=== PATIENT | male | born 1985 | race Caucasian/White ===

== ENCOUNTER 2020-03-21 18:16 | Emergency (ER) | payer OTHER ==
[~2020-03-21] VITALS: Ht 180 cm; Wt 85.0 kg
[2020-03-21 18:28] VITALS: BP 105/63
--- NOTE | 2020-03-21 18:37 | ED Lower Extremity ---
General Chief Complaint: Lower Extremity Stated Complaint: ACHILLES PAIN Nursing Triage Note: PT WAS PLAYING SOME WARRIOR GAMES AND TOOK OFF TO RUN AND FELT A BURNING PAIN IN HIS LEFT ACHILLLES. 600 MG OF IBUPROFEN TAKEN WITHIN THE HALF HOUR. 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 He says he was playing volleyball and he took off to run and says he put pressure on his left foot he felt a sharp pain like a fast ball being struck right in his Achilles tendon. He has been having difficulty walking on it because of the pain. He's been elevating it, icing it and took 800 mg of ibuprofen. This happened about 45 minutes prior to arrival. No previous history of orthotic injury to the site. He does follow with a doctor but does not take any medications routinely. He has an allergy to penicillin which she states is hives. No recent history of steroid use or antibiotics. Patient is from [facility]. No cough or sick contacts. No fevers. He plans to return home on Friday, 3 days from now Allergies and Home Medications Allergies Coded Allergies: penicillin G (Verified Allergy, Mild, Hives, 03/21/20) Patient Home Medication List Home Medication List Reviewed: Yes Review of Systems Constitutional: No chills, No diaphoresis EENTM: No ear discharge, No ear pain Respiratory: No cough, No short of breath Cardiovascular: No chest pain, No edema Gastrointestinal: No abdominal pain, No constipation, No diarrhea, No nausea Genitourinary: No discharge, No dysuria Musculoskeletal: see HPI; No back pain; joint pain Skin: No change in color, No change in hair/nails Psychiatric/Neurological: Denies Anxiety, Denies Depressed All Other Systems Reviewed Negative Unless Noted: Yes Past Xtuyrrq-Opzsxj-Nbtvwk Hx Patient Social History Alcohol Use: Regular Use Alcohol Beverage of Choice: Beer, Whiskey Recreational Drug Use: No Smoking Status: Current Someday Smoker 2nd Hand Smoke Exposure: No Recent Foreign Travel: No Contact w/Someone Who Travel: No Recent Infectious Disease Expo: No Recent Hopitalizations: No Physical Abuse: No Sexual Abuse: No Mistreated: No Fear: No Seasonal Allergies Seasonal Allergies: No Past Medical History Surgeries: Yes Orthopedic, Vasectomy Respiratory: No Cardiac: No Neurological: No Genitourinary: No Gastrointestinal: No Musculoskeletal: No Endocrine: No HEENT: No Cancer: No Psychosocial: Yes Sleep Difficulties Integumentary: No Blood Disorders: No Physical Exam Vital Signs Vital Signs - First Documented 03/21/20 18:28 Temp 36.1 Pulse 83 Resp 18 B/P (MAP) 105/63 (77) Pulse Ox 97 O2 Delivery Room Air Capillary Refill : NONE Height, Weight, BMI Height: '" Weight: lbs. oz. kg; 26.00 BMI Method: General Appearance: WD/WN, mild distress HEENT: PERRL/EOMI, pharynx normal Neck: full range of motion, normal inspection Cardiovascular: normal peripheral pulses, regular rate, rhythm Respiratory: no respiratory distress, no accessory muscle use Legs: bilateral leg non-tender, bilateral leg normal inspection, bilateral leg normal range of motion, bilateral leg no evidence of injury Ankles: bilateral ankle non-tender, bilateral ankle normal inspection, bilateral ankle normal range of motion, bilateral ankle no evidence of injury Feet: bilateral foot non-tender, bilateral foot normal inspection, bilateral foot normal range of motion, bilateral foot no evidence of injury Neurologic/Tendon: normal sensation, normal motor functions, responds to pain, tendon function deficit (positive Vásquez's test. On Squeezing the gastrocnemius there is no plantar flexion. The patient is able to actively plantar flex his left foot.), other (in the prone position with his left leg flexed at the knee 90 his foot does not plantar flex on squeezing the gastrocnemius. The left foot lays in a neutral position.) Neurologic/Psychiatric: no motor/sensory deficits, alert, normal mood/affect, oriented x 3 Skin: normal color, warm/dry Progress/Results/Core Measures Results/Orders My Orders Orders - AMPARO AUGUSTIN Ankle 3 View Left (03/21/20 18:35) Vital Signs/I&O 03/21/20 18:28 Temp 36.1 Pulse 83 Resp 18 B/P (MAP) 105/63 (77) Pulse Ox 97 O2 Delivery Room Air Blood Pressure Mean: 77 Diagnostic Imaging Diagonstic Imaging: Xray Plain Films/CT/US/NM/MRI: ankle (left) Comments [facility], [place] NAME: MICHELLE DUENAS [facility] REC#: [id number] PT STATUS: REG ER : 1985 PHYSICIAN: AMPARO AUGUSTIN MD ADMIT DATE: 03/21/20/ER FS Signed Date of Exam:03/21/20 ANKLE 3 VIEW LEFT INDICATION: Burning pain at the level of the Achilles. FINDINGS: There is maintenance of the fat within the pre-Achilles space. The calcaneus appeared intact. No fracture or dislocation evident. There is no widening of the ankle mortise. The plafond and talar dome intact. The articular surfaces smooth. IMPRESSION: No acute appearing abnormality radiographically apparent. Dictated by: Dictated on workstation # [id number] Dict: 03/21/201847 Trans: 03/21/201856 LONG [id number] Interpreted by: BASHIR MAURER Electronically signed by: BASHIR MAURER 03/21/201856 Reviewed: Reviewed by Me Consults : Consulting Physician: SHERRIE SHARMA MD Consults Notes Left VM: [id number] 1899: Discussed the case and he said he would be happy to fix the tendon. He can be nonoperatively managed if the patient prefers it. Dr. Sharma typically would recommend fixing it. He says however there would be an increased risk of clots after surgery driving back to [place] so he wants to drive back to [place] and get it fixed within the next couple weeks that would be reasonable course of action. He agrees with a short-leg splint. Departure Impression Primary Impression: Rupture of left Achilles tendon Qualified Codes: S86.012A - Strain of left Achilles tendon, initial encounter Disposition: HOME, SELF-CARE Condition: Stable Departure-Patient Inst. Decision time for Depature: 19:02 Referrals: SHERRIE SHARMA MD Patient Instructions: Achilles Tendon Rupture (DC) Add. Discharge Instructions: Use the crutches and do not bear any weight on your left foot until released by the surgeon. Wear the splint except to bathe. Elevate your foot above the level of your heart when at rest. Ice for 20 minutes every couple hours can be helpful for swelling and pain for the first 1-2 days. Tylenol 1000 mg every 8 hours as needed for pain. Ibuprofen 800 mg, 4 tablets every 8 hours as needed for pain. Get in with an orthopedic surgeon of your choice and discuss appropriate management of Achilles tendon rupture. Typically would need to get this repair done within the next couple weeks. I would recommend follow-up within the next couple days with the surgeon in the clinic. All discharge instructions reviewed with patient and/or family. Voiced und erstanding. Work/School Note: Work Release Form Date Seen in the Emergency Department: Mar 21, 2020 Return to Work: Mar 27, 2020 Restrictions: Need Release from Doctor Other Restrictions Listed Below: Nonweightbearing left leg until released by physician. AMPARO AUGUSTIN Mar 21, 2020 18:37
--- NOTE | 2020-03-21 18:55 | Diagnostic Imaging Report ---
INDICATION: Burning pain at the level of the Achilles. FINDINGS: There is maintenance of the fat within the pre-Achilles space. The calcaneus appeared intact. No fracture or dislocation evident. There is no widening of the ankle mortise. The plafond and talar dome intact. The articular surfaces smooth. IMPRESSION: No acute appearing abnormality radiographically apparent. Dictated by: Dictated on workstation # [id number]
== END 2020-03-21 19:20 | disposition home or self-care (01) ==
LOC: ER FS 18:18
DX: S86.012A Strain of left Achilles tendon, initial encounter (principal); F17.200 Nicotine dependence, unspecified, uncomplicated; Z88.0 Allergy status to penicillin; X50.9XXA Other and unspecified overexertion or strenuous movements or postures, initial encounter; Y93.68 Activity, volleyball (beach) (court)
CPT/HCPCS: 29515; 73610